=== PATIENT | female | born 1990 | race Caucasian/White ===

== ENCOUNTER 2019-11-03 05:10 | Inpatient (IN) | payer OTHER ==
[~2019-11-03] VITALS: Ht 165.1 cm; Wt 74.4 kg
[2019-11-03] MEDS ORDERED: LR 1,000 ML IV ONE (05:27)
[2019-11-03] MEDS ORDERED: CEFAZOLIN 2 GM IVPB PREMIX 50 ML IV ONE (05:30)
[2019-11-03 06:00] VITALS: BP_SYST 128
[2019-11-03 06:00] LABS: BILIRUBIN,URINE NEGATIVE (NEGATIVE); BLOOD, URINE NEGATIVE (NEGATIVE); CLARITY/URINE CLEAR (CLEAR); COLOR,URINE YELLOW (YELLOW); GLUCOSE,URINE NEGATIVE (NEGATIVE); KETONES,URINE NEGATIVE (NEGATIVE); LEUKOCYTE ESTERASE ,URINE 1+ (NEGATIVE); NITRITE, URINE NEGATIVE (NEGATIVE); PH,URINE 6.5 (5.0-8.0); PROTEIN URINE NEGATIVE (NEGATIVE); UROBILINOGEN,URINE 0.2 (0.2-1.0)
[2019-11-03] MEDS ORDERED: FLU VACC QS2019-20 36MOS UP/PF 60 MCG/0.5 ML SYRINGE I.M. ONE (06:01)
[2019-11-03 06:14] LABS: RBC,URINE 0-3 /HPF (0-3)
[2019-11-03 06:15] LABS: BACTERIA,URINE MODERATE /HPF (None Seen)
[2019-11-03 06:35] LABS: BASOPHILS % (AUTO) 0.3 % (0.0-2.0); EOSINOPHILS # (AUTO) 0.2 K/uL (0.0-0.4); HEMATOCRIT 40.9 % (36-48); HEMOGLOBIN 13.7 g/dL (12.0-16.0); LYMPHOCYTES # (AUTO) 2.3 K/uL (1.0-5.5); LYMPHOCYTES % (AUTO) 26.4 % (20.5-51.5); MEAN CORPUSCULAR HEMOGLOBIN 32 pg (27-31); MEAN CORPUSCULAR HGB CONC 34 % (32-36); MEAN CORPUSCULAR VOLUME 94 fL (79.0-98.0); MONOCYTES # (AUTO) 0.8 K/uL (0.0-1.0); MONOCYTES % (AUTO) 9.2 % (1.7-9.3); NEUTROPHILS # (AUTO) 5.5 K/uL (1.8-7.7); NEUTROPHILS % (AUTO) 62.1 % (40.0-70.0); PLATELET COUNT (AUTO) 144 K/uL (130-430); RED BLOOD CELL COUNT(AUTO) 4.37 MIL/uL (4.2-6.2); RED CELL DISTRIBUTION WIDTH 13.5 % (9.0-15.0); WHITE BLOOD COUNT (AUTO) 8.8 K/uL (4.8-10.8)
[2019-11-03] MEDS ORDERED: LR 1,000 ML IV.SOLN IV ONE (07:15)
[2019-11-03] MEDS ORDERED: BUPIVACAINE /PF 0.75% 10 ML VIAL INJ ONE (07:15)
[2019-11-03] MEDS ORDERED: MORPHINE SULFATE 10MG/10ML PF AMP EP ONE (07:15)
[2019-11-03] MEDS ORDERED: OXYTOCIN 10 UNIT/ML VIAL IV ONE (07:15)
[2019-11-03] MEDS ORDERED: ONDANSETRON HCL 4 MG/2 ML VIAL IVP ONE (07:15)
[2019-11-03] MEDS ORDERED: MORPHINE SULFATE 10 MG/ML VIAL IVP ONE (07:15)
[2019-11-03] MEDS ORDERED: LR 1,000 ML IV SCH (07:51)
[2019-11-03] MEDS ORDERED: BISACODYL 10 MG/SUPPOSITORY RC PRN (08:00)
[2019-11-03] MEDS ORDERED: HYDROcodone/ACETAMIN 5-325 MG TAB (NORCO/ VICODIN) PO PRN (08:00)
[2019-11-03] MEDS ORDERED: TEMAZEPAM 15 MG CAPSULE PO PRN (08:00)
[2019-11-03] MEDS ORDERED: RHO(D) IMMUNE GLOBULIN/MALTOSE 1500 UNITS/1.3 ML (WINHRO) IM PRN (08:00)
[2019-11-03] MEDS ORDERED: OXYCODONE/ACETAMINOPHEN *10*mg/325 mg TABLET PO PRN (08:00)
[2019-11-03] MEDS ORDERED: DIPH-TET-PERTUS Vaccine 0.5 ML VIAL (ADACEL) I.M. PRN (08:00)
[2019-11-03] MEDS ORDERED: LANOLIN 7 GM OINT. TP PRN (08:00)
[2019-11-03] MEDS ORDERED: ANUSOL 1 EA SUPP.RECT (PREPARATION H) RC PRN (08:00)
[2019-11-03] MEDS ORDERED: MEASLES,MUMPS&RUBELLA VACC/PF 12500 UNIT/0.5 ML VIAL SUBQ PRN (08:00)
[2019-11-03] MEDS ORDERED: MEPERIDINE HCL/PF 25 MG/ML DISP.SYRIN IVP PRN (08:45)
[2019-11-03] MEDS ORDERED: MORPHINE SULFATE 10MG/10ML PF AMP SP SCH (08:45)
[2019-11-03] MEDS ORDERED: NALOXONE HCL 0.4 MG/ML AMP (NARCAN) IVP PRN (08:45)
[2019-11-03] MEDS ORDERED: ONDANSETRON HCL 4 MG/2 ML VIAL IVP PRN ×2 (08:45)
[2019-11-03] MEDS ORDERED: DIPHENHYDRAMINE INJ 50 MG/ML VIAL IM PRN (08:45)
[2019-11-03] MEDS ORDERED: HYDROmorphone 1 MG INJ. 1 MG/ML AMPUL IVP PRN (08:45)
[2019-11-03] MEDS ORDERED: KETOROLAC TROMETHAMINE 30 MG VIAL IVP PRN (08:45)
[2019-11-03] MEDS ORDERED: KETOROLAC TROMETHAMINE 60 MG/2 ML VIAL IM PRN (08:45)
[2019-11-03 09:45] VITALS: BP_SYST 87
[2019-11-03] MEDS: OXYTOCIN/0.9 % SODIUM CHLORIDE 1,000 ML IV SCH ×2 (14:00→23:19)
[2019-11-03] MEDS: CEFAZOLIN 1 GM IVPB PREMIX 50 ML IV SCH ×2 (14:00→20:00)
[2019-11-03] MEDS: SIMETHICONE 80 MG TAB.CHEW PO PRN (14:08)
[2019-11-03] MEDS: KETOROLAC TROMETHAMINE 30 MG VIAL IVP SCH (23:19)
[2019-11-04] MEDS: CEFAZOLIN 1 GM IVPB PREMIX 50 ML IV SCH (04:48)
[2019-11-04] MEDS: KETOROLAC TROMETHAMINE 30 MG VIAL IVP SCH ×3 (04:48→18:16)
[2019-11-04 07:50] LABS: BASOPHILS % (AUTO) 0.3 % (0.0-2.0); EOSINOPHILS # (AUTO) 0.2 K/uL (0.0-0.4); EOSINOPHILS % (AUTO) 1.7 % (0.0-4.0); HEMATOCRIT 36.5 % (36-48); HEMOGLOBIN 12.2 g/dL (12.0-16.0); LYMPHOCYTES # (AUTO) 1.5 K/uL (1.0-5.5); LYMPHOCYTES % (AUTO) 15.6 % (20.5-51.5); MEAN CORPUSCULAR HEMOGLOBIN 32 pg (27-31); MEAN CORPUSCULAR HGB CONC 34 % (32-36); MEAN CORPUSCULAR VOLUME 95 fL (79.0-98.0); MONOCYTES # (AUTO) 0.8 K/uL (0.0-1.0); MONOCYTES % (AUTO) 8.4 % (1.7-9.3); NEUTROPHILS # (AUTO) 7.2 K/uL (1.8-7.7); PLATELET COUNT (AUTO) 118 K/uL (130-430); RED BLOOD CELL COUNT(AUTO) 3.85 MIL/uL (4.2-6.2); RED CELL DISTRIBUTION WIDTH 13.6 % (9.0-15.0); WHITE BLOOD COUNT (AUTO) 9.8 K/uL (4.8-10.8)
[2019-11-04] MEDS: SIMETHICONE 80 MG TAB.CHEW PO PRN ×3 (12:34→23:59)
[2019-11-04] MEDS: DOCUSATE SODIUM 100 MG CAPSULE PO PRN (18:14)
[2019-11-04] MEDS: SENNOSIDES/DOCUSATE SODIUM 1 TAB TABLET(SENOKOT-S) PO PRN (18:15)
[2019-11-04] MEDS: IBUPROFEN 600 MG TABLET PO SCH (23:58)
[2019-11-05] MEDS: SIMETHICONE 80 MG TAB.CHEW PO PRN ×3 (03:13→15:21)
[2019-11-05] MEDS: DOCUSATE SODIUM 100 MG CAPSULE PO PRN ×2 (03:13→15:21)
[2019-11-05] MEDS: OXYCODONE/ACETAMINOPHEN 5-325 TABLET PO PRN ×2 (03:14→15:22)
[2019-11-05] MEDS: IBUPROFEN 600 MG TABLET PO SCH ×2 (05:54→12:02)
[2019-11-05] MEDS: SENNOSIDES/DOCUSATE SODIUM 1 TAB TABLET(SENOKOT-S) PO PRN (15:21)
== END 2019-11-05 15:30 | disposition home or self-care (01) | DRG 785 ==
LOC: SPU 05:10
PROVIDERS: ADMIT Specialist; ATTEND Specialist
PROC: 0UL70CZ Occlusion of Bilateral Fallopian Tubes with Extraluminal Device, Open Approach (ICD-10-PCS; 2019-11-03)
PROC: 10D00Z1 Extraction of Products of Conception, Low, Open Approach (ICD-10-PCS; principal; 2019-11-03 07:30)
DX: O34.211 Maternal care for low transverse scar from previous cesarean delivery (principal); O99.824 Streptococcus B carrier state complicating childbirth; O69.81X0 Labor and delivery complicated by cord around neck, without compression, not applicable or unspecified; Z3A.40 40 weeks gestation of pregnancy; Z37.0 Single live birth; Z30.2 Encounter for sterilization; O99.345 Other mental disorders complicating the puerperium; F53.0 Postpartum depression
CPT/HCPCS: 36415; 81000-TC; 85025; 86592; 86886; 86900; 86901; 87086; J0690; J1200; J1885; J2270; J2274; J2405; J2590; J3490; J7120